=== PATIENT | female | born 1995 | race Hispanic/Latino ===

== ENCOUNTER 2024-12-28 23:55 | Emergency (ER) | payer SELFPAY ==
[~2024-12-28] VITALS: Ht 144.8 cm; Wt 47.2 kg
--- NOTE | 2024-12-29 00:01 | NUR ---
UA CUP PROVIDED
--- NOTE | 2024-12-29 00:25 | ERN ---
ED Note History of Present Illness Stated Complaint: OTHER Chief Complaint: Nausea,Vomiting,Diarrhea Time Seen by MD: 00:08 Time Seen by Midlevel: 00:10 Dictation: 29-year-old female coming in with complaints of generalized abdominal pain nausea and vomiting since yesterday. Patient states she drank a lot of alcohol last night, and eating a little bit of water burger. At this time patient states she can not keep anything down. Denies any fever, blood in follow up blood in emesis. LMP today. Allergies: Coded Allergies: No Known Allergies (Unverified Allergy, Unknown, 12/29/24) Home Meds Active Scripts Ondansetron (Ondansetron Odt) 4 Mg Tab.rapdis, 4 MG PO Q6HPRN PRN for nausea, #16 TAB 0 Refills Prov:JOS GOODWIN DIRECTOR [employer] 12/29/24 Past Medical History Past Medical History: No Pertinent History Surgical History: Other Surgical History Other: BILATERAL HIPS LMP: Dec 28, 2024 Review of System Dictation Constitutional: Negative for fever,chills, and weight loss Eyes: Negative for injury, pain,redness, and discharge ENT: Negative for injury,pain or swelling Cardiovascular: Negative for chest pain, palpitations, and edema Respiratory: Negative for shortness of breath, cough, and wheezing, Abdomen/GI: Purulence abdominal pain with nausea and vomiting Back: Negative for injury and pain : Negative for injury, bleeding and discharge MS/Extremity: Negative for injury and deformity Skin: Negative for rash, and discoloration Neuro: Negative for headache, weakness, numbness, tingling, and seizure Psych: Negative for suicide ideation, homicidal ideation, and hallucinations Review of Systems: was completed Initial Vital Sign VS Vital Signs Date Time Temp Pulse Resp B/P (MAP) Pulse Ox O2 Delivery O2 Flow Rate FiO2 12/28/24 23:59 97.3 87 20 109/76 99 Room Air 12/29/24 00:26 0 21 Physical Exam Dictation General: awake, alert, NAD Head/Face: Normocephalic, atraumatic Eyes: PERRL, EOMI, vision at baseline ENT: oral cavity clear, TMs clear, no signs of infection Neck: Trachea midline, supple, no nuchal rigidity Cardiovascular: RRR, normal S1/S2, No MRGs, no JVD Respiratory: CTAB, no respiratory distress, No rales or wheezes Abdomen: Soft, non-tender, non-distended, normal bowel sounds, no guarding or rebound. Skin: Warm, dry, normal turgor, no rash MS/Extremity: Pulses equal, no cyanosis, neurovascular intact, FROM Neuro: COAx4, GCS 15, strength 5/5, CN 2-12 intact, normal cerebellar exam, normal gait, Psych: Normal behavior, mood, and affect normal Results (Laboratory/Radiology) Laboratory/Radiology Laboratory Tests Test 12/29/24 00:14 White Blood Count 11.2 K/uL (4.8-10.8) H Red Blood Count 4.86 MIL/uL (4.00-5.50) Hemoglobin 14.4 g/dL (12.0-16.0) Hematocrit 43.2 % (36-48) Mean Corpuscular Volume 88.9 fL (79-99) Mean Corpuscular Hemoglobin 29.6 pg (27.0-33.0) Mean Corpuscular Hemoglobin Concent 33.3 g/dL (32.0-36.0) Red Cell Distribution Width 11.8 % (11.0-15.5) Platelet Count 346 K/uL (130-400) Mean Platelet Volume 9.8 fL (7.5-10.5) Immature Granulocyte % (Auto) 0.3 % (0-1) Neutrophils (%) (Auto) 67.5 % (40.0-77.0) Lymphocytes (%) (Auto) 21.8 % (21.0-51.0) Monocytes (%) (Auto) 8.8 % (3.0-13.0) Eosinophils (%) (Auto) 1.2 % (0.0-8.0) Basophils (%) (Auto) 0.4 % (0.0-5.0) Neutrophils # (Auto) 7.6 K/uL (1.8-7.7) Lymphocytes # (Auto) 2.4 K/uL (1.0-4.8) Monocytes # (Auto) 1.0 K/uL (0.1-1.0) Eosinophils # (Auto) 0.13 K/uL (0.00-0.70) Basophils # (Auto) 0.05 K/uL (0.00-0.20) Absolute Immature Granulocyte (auto 0.03 K/uL (0-1) Nucleated Red Blood Cells 0.0 % (0.0-0.19) Urine Color LIGHT-ORANGE (YELLOW) Urine Appearance CLOUDY (CLEAR) H Urine pH 8.0 (5.0-8.0) Urine Specific [place] 1.025 (1.001-1.031) Urine Protein 50 mg/dL (NEGATIVE) H Urine Glucose (UA) NEGATIVE mg/dL (NEGATIVE) Urine Ketones NEGATIVE mg/dL (NEGATIVE) Urine Occult Blood LARGE (NEGATIVE) H Urine Nitrate NEGATIVE (NEGATIVE) Urine Bilirubin NEGATIVE mg/dL (NEGATIVE) Urine Urobilinogen 0.2 mg/dL (0.2-1.0) Urine Leukocyte Esterase 25 Brad/uL (NEGATIVE) H Urine RBC TNTC /HPF (0-1) H Urine WBC 6-10 /HPF (0-1) H Urine Bacteria RARE /HPF (None Seen) Sodium Level 142 mmol/L (136-145) Potassium Level 3.7 mmol/L (3.5-5.1) Chloride Level 101 mmol/L (101-111) Carbon Dioxide Level 33 mmol/L (21-32) H Blood Urea Nitrogen 16 mg/dL (7-18) Creatinine 0.6 mg/dL (0.5-1.0) Glomerular Filtration Rate Calc 126 mL/min (>90) Random Glucose 92 mg/dL (70-105) Total Calcium 9.0 mg/dL (8.5-10.1) Total Bilirubin 0.6 mg/dL (0.2-1.0) Direct Bilirubin 0.2 mg/dL (0.0-0.3) Aspartate Amino Transf (AST/SGOT) 24 U/L (10-37) Alanine Aminotransferase (ALT/SGPT) 26 U/L (12-78) Alkaline Phosphatase 84 U/L (50-136) Total Protein 8.0 g/dL (6.0-8.3) Albumin 4.5 g/dL (3.5-5.0) Lipase 19 U/L (16-77) Serum Test, Qualitative NEGATIVE (NEGATIVE) Labs Reviewed?: Yes ED Course ED Course Orders Procedure Category Date Status Time Cbc With Differential LAB 12/29/24 Complete 00:01 Basic Metabolic Panel LAB 12/29/24 Complete 00:01 Urinalysis Profile LAB 12/29/24 Complete 00:01 Testing, LAB 12/29/24 Complete Serum Hcg 00:01 0.9%Nacl 1000ml (Ns PHA 12/29/24 In Process 1000ml) 00:30 Ondansetron 4mg Inj PHA 12/29/24 Complete (Zofran 4mg Inj) 00:30 Culture Urine SARAH 12/29/24 In Process 01:42 Lipase LAB 12/29/24 Complete 01:47 Hepatic Function Panel LAB 12/29/24 Complete 01:47 Current Medications Medications (Trade) Dose Ordered Sig/Shai Route PRN Reason Start Time Stop Time Status Last Admin Dose Admin Ondansetron HCl (zoFRAN 4MG INJ) 4 mg ONCE ONCE IVP 12/29/24 00:30 12/29/24 00:31 DC 12/29/24 00:35 Sodium Chloride 1,000 ml @ 0 mls/hr Q0M IV 12/29/24 00:30 01/28/25 00:29 12/29/24 00:35 Vital Signs Date Time Temp Pulse Resp B/P (MAP) Pulse Ox O2 Delivery O2 Flow Rate FiO2 12/29/24 00:26 99.0 95 20 131/104 97 Room Air* 0 21 12/28/24 23:59 97.3 87 20 109/76 99 Room Air Medical Decision Making MDM MDM: 29-year-old female coming in with complaints of generalized abdominal pain nausea and vomiting since yesterday. Patient states she drank a lot of alcohol last night, and eating a little bit of water burger. At this time patient states she can not keep anything down. Denies any fever, blood in follow up blood in emesis. LMP today. Blood work is unremarkable. Discussed the possibility with the patient that her symptoms are related to the alcohol from last night. Educated to start a liquid diet and increase as tolerated. Patient verbalized understanding, answered all questions. Differential diagnosis: Avoid the complication, dehydration, electrolyte abnormality, Rationale: Tests considered and ordered secondary to shared decision making include: Previous outside records reviewed: Old ER visits. Risk of complication and/or morbidity or mortality of patient management: None Medications-Per medication reconciliation Need for hospitalization: Patient does not meet criteria for hospitalization. Need for emergency major/minor surgery: No There are no social concerns with this patient. Prescription drug management Prescriptions will include symptomatic care Patient's prior external medical records from other ER visits were reviewed by me as indicated. Prior testing and results from previous visits were reviewed. Prior tests were taken into account with medical decision making and resource utilization, independent historian/historians were used to obtain complete medical history. I independently interpreted the test that were performed, results were reviewed by me and considered findings on radiology if ordered. Medical management and examination interpretation discussions were had by me with other qualified healthcare professionals as indicated for the patient's care. DX & DISP Disposition: Discharge Departure Impression: Primary Impression: Nausea and vomiting Condition: Stable Scripts Ondansetron (Ondansetron Odt) 4 Mg Tab.rapdis 4 MG PO Q6HPRN PRN for nausea, #16 TAB 0 Refills Prov: JOS GOODWIN CNP 12/29/24 Additional Instructions: That started a liquid diet and increase as tolerated. If you are still having nausea and vomiting after taking your nausea medication please return back to the emergency room. Otherwise follow up with your primary care doctor in 1-2 days. Referrals: NONE (PCP) Time of Disposition: 01:45 I have reviewed the case, and I agree with, Diagnosis and Plan JOS GOODWIN CNP Dec 29, 2024 00:25
[2024-12-29] MEDS: 0.9%NACL 1000ML 1,000 ML IV SCH (00:35)
[2024-12-29 00:36] LABS: CREATININE 0.6 mg/dL (0.5-1.0); GLOMERULAR FILTR. RATE CALC 126.0 mL/min (>90); GLUCOSE,RANDOM 92.0 mg/dL (70-105); SODIUM SERUM 142.0 mmol/L (136-145); UREA NITROGEN, BLOOD 16.0 mg/dL (7-18)
[2024-12-29 00:38] LABS: IMMATURE GRANULOCYTE ABSOLUTE 0.03 K/uL (0-1); NUCLEATED RED BLOOD CELLS 0.0 % (0.0-0.19); PLATELET COUNT (AUTO) 346 K/uL (130-400); RED BLOOD CELL COUNT(AUTO) 4.86 MIL/uL (4.00-5.50); RED CELL DISTRIBUTION WIDTH 11.8 % (11.0-15.5); WHITE BLOOD COUNT (AUTO) 11.2 K/uL (4.8-10.8)
[2024-12-29 01:31] LABS: APPEARANCE,URINE CLOUDY (CLEAR); GLUCOSE, URINE (UA) NEGATIVE (NEGATIVE); LEUKOCYTE ESTERASE ,URINE 25 Leu/uL (NEGATIVE); NITRATE,URINE NEGATIVE (NEGATIVE); OCCULT BLOOD,URINE LARGE (NEGATIVE)
[2024-12-29 01:39] LABS: ADD UA MICROSCOPIC YES
[2024-12-29] MEDS ORDERED: ONDA-243 PO (01:45)
[2024-12-29 02:05] LABS: ASPARTATE AMINOTRANSFERASE 24.0 U/L (10-37); TOTAL PROTEIN, SERUM 8.0 g/dL (6.0-8.3)
[2024-12-29 02:15] VITALS: BP 104/57; PULSE 87; RESP 20; TEMP 98.9; O2SAT 97
== END 2024-12-29 02:26 | disposition home or self-care (01) ==
LOC: EDH 23:55
DX: R11.2 Nausea with vomiting, unspecified (principal); R10.84 Generalized abdominal pain; R19.7 Diarrhea, unspecified
CPT/HCPCS: 99283; 80076; 80048; 84703; 83690; 85025; 87086; 81001; 36415; 96374; 96361; J7030; J2405